=== PATIENT | female | born 1935 | race Caucasian/White ===

== ENCOUNTER 2023-07-13 15:14 | Emergency (ER) | payer MEDICARE, MEDICAID ==
[~2023-07-13] VITALS: Ht 157.5 cm; Wt 55.0 kg
[2023-07-13 15:16] VITALS: O2SAT 100
[2023-07-13] MEDS: TETANUS, DIPHTHERIA, PERTUSSIS VAC/PF 0.5ML (>10YR OLD) IM ONE (15:30)
[2023-07-13] MEDS: ACETAMINOPHEN 325MG TABLET PO ONE (16:21)
[2023-07-13 17:00] VITALS: BP 143/79; PULSE 85; RESP 16; TEMP 98.1
== END 2023-07-13 19:22 ==
LOC: ER 15:14
DX: R51.9 Headache, unspecified (principal); E11.9 Type 2 diabetes mellitus without complications; I10 Essential (primary) hypertension
CPT/HCPCS: 71045; 73562; 90471; 90715; 99285